=== PATIENT | male | born 1975 | race African-American/Black ===

== ENCOUNTER 2023-05-18 16:49 | Inpatient (IN) | payer OTHER ==
[2023-05-18 18:07] VITALS: BMI 43.0
[2023-05-18] MEDS ORDERED: MAGNESIUM HYDROX 2400MG/30ML ORAL SUSPENSION 30 ML CUP PO PRN (20:15)
[2023-05-18] MEDS ORDERED: MAG HYDROX/AL HYDROX/SIMETH 30 ML UNIT-DOSE CUP PO PRN (20:15)
[2023-05-18] MEDS ORDERED: POLYETHYLENE GLYCOL (HEALTHYLAX) 3350 17 GM PACKET PO PRN (20:15)
[2023-05-18] MEDS ORDERED: chlordiazePOXIDE HCL 25 MG CAPSULE PO PRN (20:15)
[2023-05-18] MEDS ORDERED: NALOXONE HCL 0.4 MG/ML VIAL IM PRN (20:15)
[2023-05-18] MEDS ORDERED: guaiFENesin 600 MG TABLET.ER (FP) PO PRN (20:15)
[2023-05-18] MEDS ORDERED: ONDANSETRON *ODT* 4 MG TABLET SL PRN (20:15)
[2023-05-18] MEDS ORDERED: BENZOCAINE/MENTHOL (CHLORASEPTIC ) LOZENGE MM PRN (20:15)
[2023-05-18] MEDS ORDERED: IBUPROFEN 400 MG TABLET (FP) PO PRN (20:15)
[2023-05-18] MEDS ORDERED: NALOXONE HCL (KLOXXADO) 8 MG SPRAY NS PRN (20:15)
[2023-05-18] MEDS ORDERED: BENZONATATE 200 MG CAPSULE PO PRN (20:15)
[2023-05-18] MEDS ORDERED: LOPERAMIDE HCL 2 MG CAPSULE PO PRN (20:15)
[2023-05-18] MEDS ORDERED: DICYCLOMINE HCL 10 MG CAPSULE PO PRN (20:15)
[2023-05-18] MEDS ORDERED: BISMUTH SUBSALICYLATE 524 MG/30 ML PO PRN (20:15)
[2023-05-18] MEDS ORDERED: ACETAMINOPHEN 325 MG TABLET (FP) PO PRN (20:15)
[2023-05-18] MEDS: chlordiazePOXIDE HCL 25 MG CAPSULE PO SCH (22:18)
[2023-05-18] MEDS: MELATONIN 5 MG TABLETS PO SCH (22:18)
[2023-05-18] MEDS: THIAMINE HCL 100 MG TABLET (FP) PO SCH (22:19)
[2023-05-19] MEDS: chlordiazePOXIDE HCL 25 MG CAPSULE PO SCH ×4 (05:39→22:18)
[2023-05-19] MEDS: PRENATAL VITAMINS W/ FOLIC ACID TABLET (FP) PO SCH (10:11)
[2023-05-19] MEDS: METHOCARBAMOL 500 MG TABLET PO PRN ×3 (10:14→23:48)
[2023-05-19 10:20] LABS: HEMATOCRIT 33.5 % (35.4-49); HEMOGLOBIN 11.6 GM/dL (11.7-16.9); MCH 31.3 pg (25.7-33.7); MCHC 34.5 g/dl (32.0-35.9); MEAN CELL VOLUME 90.7 fl (80-96); MEAN PLT VOLUME 7.6 fl (7.5-11.1); PLATELET COUNT 186 10^3/uL (134-434); RBC 3.69 M/mm3 (4.00-5.60); RDW 15.4 % (11.9-15.9); WHITE BLOOD COUNT 3.4 K/mm3 (4.0-10.0)
[2023-05-19 10:44] LABS: POTASSIUM 3.7 mmol/L (3.5-5.1)
[2023-05-19 10:54] LABS: CALCIUM 8.6 mg/dL (8.5-10.1)
[2023-05-19 10:55] LABS: ALBUMIN 2.9 g/dl (3.4-5.0); BLOOD UREA NITROGEN 9.8 mg/dL (7-18)
[2023-05-19 10:58] LABS: CREATININE 0.7 mg/dL (0.55-1.3)
[2023-05-19 10:59] LABS: BILIRUBIN,TOTAL 0.8 mg/dL (0.2-1); TOT PROT 5.8 g/dl (6.4-8.2)
[2023-05-19] MEDS: GABAPENTIN 300 MG CAPSULE PO SCH ×2 (14:18→22:18)
[2023-05-19] MEDS: PANTOPRAZOLE 40 MG TABLET PO SCH (14:18)
[2023-05-19] MEDS: DOCUSATE SODIUM 100 MG CAPSULE (FP) PO SCH (14:18)
[2023-05-19] MEDS: IBUPROFEN 600 MG TABLET (FP) PO PRN (17:45)
[2023-05-19] MEDS: THIAMINE HCL 100 MG TABLET (FP) PO SCH (22:18)
[2023-05-19] MEDS: MELATONIN 5 MG TABLETS PO SCH (22:18)
[2023-05-19] MEDS: SUCRALFATE 1 GM TABLET (FP) PO SCH (22:19)
[2023-05-19] MEDS: SUVOREXANT 10 MG TABLET PO PRN (23:47)
[2023-05-20] MEDS: GABAPENTIN 300 MG CAPSULE PO SCH ×3 (05:48→22:32)
[2023-05-20] MEDS: chlordiazePOXIDE HCL 25 MG CAPSULE PO SCH ×4 (05:49→22:32)
[2023-05-20] MEDS: METHOCARBAMOL 500 MG TABLET PO PRN ×3 (05:50→23:37)
[2023-05-20] MEDS: IBUPROFEN 600 MG TABLET (FP) PO PRN (05:50)
[2023-05-20] MEDS: SUCRALFATE 1 GM TABLET (FP) PO SCH ×2 (06:21→20:13)
[2023-05-20] MEDS: PRENATAL VITAMINS W/ FOLIC ACID TABLET (FP) PO SCH (10:13)
[2023-05-20] MEDS: DOCUSATE SODIUM 100 MG CAPSULE (FP) PO SCH (10:13)
[2023-05-20] MEDS: PANTOPRAZOLE 40 MG TABLET PO SCH (10:13)
[2023-05-20] MEDS: hydrOXYzine PAMOATE 25 MG CAPSULE (FP) PO PRN ×2 (10:14→23:37)
[2023-05-20] MEDS: MELATONIN 5 MG TABLETS PO SCH (22:31)
[2023-05-20] MEDS: THIAMINE HCL 100 MG TABLET (FP) PO SCH (22:31)
[2023-05-20] MEDS: SUVOREXANT 10 MG TABLET PO PRN (23:37)
[2023-05-21] MEDS ORDERED: chlordiazePOXIDE HCL 10 MG CAPSULE PO PRN
[2023-05-21] MEDS: chlordiazePOXIDE HCL 10 MG CAPSULE PO SCH ×4 (05:53→22:35)
[2023-05-21] MEDS: GABAPENTIN 300 MG CAPSULE PO SCH ×3 (05:53→22:35)
[2023-05-21] MEDS: METHOCARBAMOL 500 MG TABLET PO PRN ×2 (05:55→18:13)
[2023-05-21] MEDS: SUCRALFATE 1 GM TABLET (FP) PO SCH ×2 (06:20→19:54)
[2023-05-21] MEDS ORDERED: BISACODYL 5 MG TABLET.DR (FP) PO ONE (09:59)
[2023-05-21] MEDS: DOCUSATE SODIUM 100 MG CAPSULE (FP) PO SCH (10:32)
[2023-05-21] MEDS: PANTOPRAZOLE 40 MG TABLET PO SCH (10:32)
[2023-05-21] MEDS: PRENATAL VITAMINS W/ FOLIC ACID TABLET (FP) PO SCH (10:32)
[2023-05-21] MEDS: IBUPROFEN 600 MG TABLET (FP) PO PRN ×2 (10:35→18:12)
[2023-05-21] MEDS: MELATONIN 5 MG TABLETS PO SCH (22:35)
[2023-05-21] MEDS: THIAMINE HCL 100 MG TABLET (FP) PO SCH (22:35)
[2023-05-21] MEDS: hydrOXYzine PAMOATE 25 MG CAPSULE (FP) PO PRN (23:50)
[2023-05-21] MEDS: SUVOREXANT 10 MG TABLET PO PRN (23:50)
[2023-05-22] MEDS: chlordiazePOXIDE HCL 10 MG CAPSULE PO SCH ×2 (05:43→17:44)
[2023-05-22] MEDS: GABAPENTIN 300 MG CAPSULE PO SCH ×3 (05:43→23:14)
[2023-05-22] MEDS: METHOCARBAMOL 500 MG TABLET PO PRN ×2 (05:45→23:14)
[2023-05-22] MEDS: IBUPROFEN 600 MG TABLET (FP) PO PRN (05:48)
[2023-05-22] MEDS: SUCRALFATE 1 GM TABLET (FP) PO SCH ×2 (07:17→20:38)
[2023-05-22] MEDS: PRENATAL VITAMINS W/ FOLIC ACID TABLET (FP) PO SCH (09:11)
[2023-05-22] MEDS: DOCUSATE SODIUM 100 MG CAPSULE (FP) PO SCH (09:11)
[2023-05-22] MEDS: PANTOPRAZOLE 40 MG TABLET PO SCH (09:11)
[2023-05-22] MEDS: MELATONIN 5 MG TABLETS PO SCH (23:14)
[2023-05-22] MEDS: THIAMINE HCL 100 MG TABLET (FP) PO SCH (23:14)
[2023-05-22] MEDS: hydrOXYzine PAMOATE 25 MG CAPSULE (FP) PO PRN (23:14)
[2023-05-23] MEDS ORDERED: chlordiazePOXIDE HCL 10 MG CAPSULE PO ONE (05:00)
[2023-05-23] MEDS: IBUPROFEN 600 MG TABLET (FP) PO PRN (05:21)
[2023-05-23] MEDS: METHOCARBAMOL 500 MG TABLET PO PRN (05:21)
[2023-05-23] MEDS: GABAPENTIN 300 MG CAPSULE PO SCH (05:21)
[2023-05-23] MEDS: SUCRALFATE 1 GM TABLET (FP) PO SCH (06:35)
[2023-05-23 08:53] VITALS: BP 125/76; PULSE 77; RESP 16; TEMP 97.5
[2023-05-23] MEDS: DOCUSATE SODIUM 100 MG CAPSULE (FP) PO SCH (09:57)
[2023-05-23] MEDS: PRENATAL VITAMINS W/ FOLIC ACID TABLET (FP) PO SCH (09:57)
[2023-05-23] MEDS: PANTOPRAZOLE 40 MG TABLET PO SCH (09:57)
[2023-05-23] MEDS: hydrOXYzine PAMOATE 25 MG CAPSULE (FP) PO PRN (09:58)
== END 2023-05-23 10:48 | disposition other institution (70) | DRG 897 ==
LOC: YASAS 16:49 → EDBD 16:49 → Y3N 20:29
PROVIDERS: ADMIT Allergy & Immunology; ATTEND Allergy & Immunology
PROC: HZ2ZZZZ Detoxification Services for Substance Abuse Treatment (ICD-10-PCS; principal; 2023-05-18)
DX: F10.230 Alcohol dependence with withdrawal, uncomplicated (principal); Z68.41 Body mass index [BMI] 40.0-44.9, adult; F19.24 Other psychoactive substance dependence with psychoactive substance-induced mood disorder; G47.00 Insomnia, unspecified; J45.909 Unspecified asthma, uncomplicated; K21.9 Gastro-esophageal reflux disease without esophagitis; E66.01 Morbid (severe) obesity due to excess calories; Z86.79 Personal history of other diseases of the circulatory system; Z86.39 Personal history of other endocrine, nutritional and metabolic disease; Z87.891 Personal history of nicotine dependence
CPT/HCPCS: 36415; 80053; 85027; 86780; 87635; 93005; 93010